=== PATIENT | female | born 1955 | race Caucasian/White ===

== ENCOUNTER 2021-08-28 11:14 | Outpatient (CLI) | payer MEDICARE ==
[2021-08-28 21:50] LABS: SARS-CoV-2 PCR by NAA Not Detected (NotDetected)
== END 2021-08-28 11:15 | disposition home or self-care (01) ==
LOC: CSHLAB 11:14
PROVIDERS: ATTEND Nurse Practitioner Adult Health
DX: Z20.822 Contact with and (suspected) exposure to COVID-19 (principal)
CPT/HCPCS: U0003; U0005

== ENCOUNTER 2021-09-02 08:21 | Outpatient (CLI) | payer MEDICARE | END 2021-09-02 08:22 | disposition home or self-care (01) | LOC: CSHRAD 08:21 | PROVIDERS: ATTEND Surgery | DX: K21.9 Gastro-esophageal reflux disease without esophagitis (principal); K44.9 Diaphragmatic hernia without obstruction or gangrene | CPT/HCPCS: 74220 ==